=== PATIENT | female | born 1990 | race Caucasian/White ===

== ENCOUNTER 2017-07-10 17:32 | Emergency (ER) | payer OTHER ==
[~2017-07-10] VITALS: Ht 170.2 cm; Wt 61.2 kg
[~2017-07-10 17:32] MED LIST: ATIVAN1 MG PO; MEDROLDOSEPACK PO; TRIAMCINOLONE A15 G2 TP; ZOFRAN ODT4 MG PO
[2017-07-10] MEDS ORDERED: XANAX 0.25 MG0.25 MG PO (17:52)
[2017-07-10 20:41] LABS: URINE BILIRUBIN NEGATIVE (Negative); URINE BLOOD TRACE (Negative); URINE CLARITY CLEAR; URINE COLOR YELLOW; URINE GLUCOSE-RANDOM NEGATIVE (Negative); URINE KETONES NEGATIVE (Negative); URINE LEUKOCYTES-REFLEX NEGATIVE (Negative); URINE NITRITE-REFLEX NEGATIVE (Negative); URINE PROTEIN NEGATIVE (Negative); URINE UROBILINOGEN 0.2 E.U./dl (0.2-1.0)
[2017-07-10 20:54] LABS: ABSOLUTE BASOPHILS 0.1 thou/uL (0.0-0.2); ABSOLUTE LYMPHOCYTES 1.7 thou/uL (0.8-5.3); ABSOLUTE MONOCYTES 0.8 thou/uL (0.0-1.2); ABSOLUTE NEUTROPHILS 6.9 thou/uL (1.6-8.1); BASOPHILS 0.5 %; EOSINOPHILS 0.3 %; HEMATOCRIT 43.8 % (37.0-47.0); LYMPHOCYTES 17.8 %; MCH 31.8 pg (26.0-34.0); MCHC 34.1 g/dL (28.0-37.0); MCV 93.3 fL (80.0-100.0); MONOCYTES 8.7 %; NUCLEATED RBCS 0 /100WBC; PLATELET COUNT* 281 thou/uL (150-400); POLYS 72.7 %; RDW-CV 12.5 % (10.5-14.5); WBC 9.5 thou/uL (4.0-11.0)
[2017-07-10 21:05] LABS: CALCIUM 8.9 mg/dL (8.5-10.1); CREATININE 0.6 mg/dL (0.6-1.3); POTASSIUM 3.4 mmol/L (3.5-5.1)
[2017-07-10 21:09] LABS: ALBUMIN 4.2 g/dL (3.4-5.0); TOTAL BILIRUBIN 0.3 mg/dL (<0.1-1.0); TOTAL PROTEIN 8.6 g/dL (6.4-8.2)
[2017-07-10] MEDS ORDERED: TRAMADOL 50 MG50 MG PO (21:20)
[2017-07-10] MEDS ORDERED: OSELB75 PO (21:29)
[2017-07-10] MEDS ORDERED: ONDANSETRON HCL4 M2 PO (21:29)
[2017-07-10 22:16] VITALS: BP 137/83
== END 2017-07-10 22:16 | disposition home or self-care (01) ==
LOC: M.ERS 17:32
PROVIDERS: Physician Assistant
DX: J11.1 Influenza due to unidentified influenza virus with other respiratory manifestations (principal); R10.33 Periumbilical pain; F41.9 Anxiety disorder, unspecified; R19.7 Diarrhea, unspecified

== ENCOUNTER 2018-07-12 23:28 | Emergency (ER) | payer OTHER ==
[~2018-07-12] VITALS: Ht 170.2 cm; Wt 59.0 kg
[~2018-07-12 23:28] MED LIST changes: +ONDANSETRON HCL4 M2 PO; +OSELB75 PO; +TRAMADOL 50 MG50 MG PO; +XANAX 0.25 MG0.25 MG PO
[2018-07-12] MEDS ORDERED: NEXPLANON68 MG SUBQ (23:38)
[2018-07-13 00:13] LABS: URINE BILIRUBIN NEGATIVE (Negative); URINE BLOOD NEGATIVE (Negative); URINE CLARITY CLEAR; URINE COLOR YELLOW; URINE GLUCOSE-RANDOM NEGATIVE (Negative); URINE KETONES 1+ (Negative); URINE LEUKOCYTES-REFLEX NEGATIVE (Negative); URINE NITRITE-REFLEX NEGATIVE (Negative); URINE PROTEIN NEGATIVE (Negative); URINE UROBILINOGEN 0.2 E.U./dl (0.2-1.0)
[2018-07-13 00:16] LABS: ABSOLUTE BASOPHILS 0.1 thou/uL (0.0-0.2); ABSOLUTE EOSINOPHILS 0.2 thou/uL (0.0-0.7); ABSOLUTE MONOCYTES 1.2 thou/uL (0.0-1.2); ABSOLUTE NEUTROPHILS 8.8 thou/uL (1.6-8.1); EOSINOPHILS 1.5 %; HEMATOCRIT 39.7 % (37.0-47.0); HEMOGLOBIN 13.5 gm/dL (12.0-15.0); LYMPHOCYTES 22.6 %; MCH 31.6 pg (26.0-34.0); MCHC 33.9 g/dL (28.0-37.0); MCV 93.1 fL (80.0-100.0); MONOCYTES 9.1 %; MPV 8.8 fl. (7.2-11.1); NUCLEATED RBCS 0 /100WBC; PLATELET COUNT* 272 thou/uL (150-400); POLYS 65.8 %; RBC 4.27 mil/uL (4.20-5.00); RDW-CV 12.9 % (10.5-14.5); WBC 13.4 thou/uL (4.0-11.0)
[2018-07-13 00:25] LABS: CALCIUM 8.9 mg/dL (8.5-10.1); CREATININE 0.8 mg/dL (0.6-1.3); POTASSIUM 3.8 mmol/L (3.5-5.1)
[2018-07-13 00:30] LABS: ALBUMIN 4.1 g/dL (3.4-5.0); TOTAL BILIRUBIN 0.3 mg/dL (<0.1-1.0); TOTAL PROTEIN 7.4 g/dL (6.4-8.2)
[2018-07-13 04:58] VITALS: BP 119/75
--- NOTE | 2018-07-13 09:26 | EKG ---
[place] [address] ELECTROCARDIOGRAM REPORT Name: BRANDO ESPINOSA Room: [facility]#: [id number] Admission: 07/12/18 Attend Phys: Discharge: 07/13/18 Date of : [birth year] Report #: [id number] THIS REPORT FOR: //name// [facility] ED Test Date: 2018-07-13 Test Time: 00:16:35 Pat Name: BRANDO ESPINOSA Department: Room: Gender: F Electronics Mechanic Apprentice: Agustin FLAHERTY : 1990 Requested By: Gerson Owusu Order Number: [id number] MD: Niraj Casaerz Measurements Intervals Nora Rate: 81 P: 60 MI: 106 QRS: 47 QRSD: 90 T: 24 QT: 355 QTc: 412 Interpretive Statements Sinus rhythm Short MI interval Baseline wander in lead(s) V5 Compared to ECG 02/10/2015 00:54:48 Short MI interval now present Electronically Signed On 07-13-2018 9:26:21 FABRIC STRETCHER by Niraj Casarez [email or web address] <ELECTRONICALLY SIGNED> By: Niraj Casarez MD, [facility] 07/13/18 0926 0016 0016 Niraj Casarez MD, FAC /EPI
== END 2018-07-13 05:11 | disposition short-term general hospital (02) ==
LOC: M.ERS 23:28
PROVIDERS: Family Medicine
DX: N83.01 Follicular cyst of right ovary (principal); F41.9 Anxiety disorder, unspecified